=== PATIENT | male | born 1995 | race Caucasian/White ===

== ENCOUNTER 2016-09-09 07:28 | Emergency (ER) | payer MEDICAID, OTHER ==
[~2016-09-09] VITALS: Ht 167.6 cm; Wt 65.0 kg
[~2016-09-09 07:28] MED LIST: SERO100T PO
[2016-09-09 07:30] VITALS: BP 143/80; PULSE 71; RESP 17; TEMP 98.7; O2SAT 99
--- NOTE | 2016-09-09 07:52 | PD ---
HPI . head congestion, sore throat and dental pain Chief Complaint: Oral / Dental Pain or Problem Time Seen by Provider: 07:48 Travel History International Travel<30 days: No Contact w/Intl Traveler<30days: No Traveled to known affect area: No History of Present Illness HPI 20-year-old male with bipolar disorder here with complaints of head congestion, sore throat, dry cough and dental pain. Patient said he previously went to the dentist and was told he has 8 cavities and that his wisdom teeth are impacted and causing his other teeth to move around. He is also complaining of sore throat, head congestion and a dry cough. He thinks he may have the flu as he was exposed to someone who may have had it. He denies any fever or chills. He is in the exam room crying about the pain associated with his teeth. He is aware that we do not have any dental services that could fix cavities in the emergency department. 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".) Other Surgery: Yes (2000-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.) Social History Alcohol Use: Yes (OCC) Tobacco Use: Yes (/2 PPD) Substance Use: Yes (MARIJUANA OCC) Allergies-Medications (Allergen,Severity, Reaction): Coded Allergies: No Known Allergies (Verified , 09/09/16) Reported Meds & Prescriptions Reported Meds & Active Scripts Active No Active Prescriptions or Reported Medications Review of Systems General / Constitutional: No: Fever Eyes: No: Visual changes HENT: Positive: Sore Throat, Congestion, Dental Difficulties, No: Headaches Cardiovascular: No: Chest Pain or Discomfort Respiratory: Positive: Cough, No: Shortness of Breath Gastrointestinal: No: Abdominal Pain Genitourinary: No: Dysuria Musculoskeletal: No: Pain Skin: No Rash Neurologic: No: Weakness Psychiatric: No: Depression Endocrine: No: Polydipsia Hematologic/Lymphatic: No: Easy Bruising Physical Exam Narrative GENERAL: AAO x 3, no acute distress, Well-nourished, well-developed patient. SKIN: Warm and dry. No visible rashes or bruising. HEAD: Normocephalic and atraumatic. EYES: No scleral icterus. No injection or drainage. ENT: No nasal drainage noted. Mucous membranes pink. Airway patent. Maxillary sinus tenderness. Moderate posterior pharynx erythema without exudates. Some mild to moderate tonsillar edema. Oral cavity without any abscess formation or gingivitis. TM cloudy bilaterally without bulging. NECK: Supple, trachea midline. No JVD. CARDIOVASCULAR: Regular rate and rhythm without murmurs, gallops, or rubs. RESPIRATORY: Breath sounds equal bilaterally. No accessory muscle use. No rhonchi or rales. No wheezing. GASTROINTESTINAL: Abdomen soft, non-tender, nondistended. EXTREMITIES: No cyanosis or edema. BACK: Nontender without obvious deformity. No CVA tenderness. PSYCH: AAO x 3, normal affect. Data Data Last Documented VS Vital Signs Date Time Temp Pulse Resp B/P Pulse Ox O2 Delivery O2 Flow Rate FiO2 09/09/16 07:30 98.7 71 17 143/80 99 MDM Medical Decision Making Medical Screen Exam Complete: Yes Emergency Medical Condition: Yes Medical Record Reviewed: Yes Differential Diagnosis Acute sinusitis, less likely oral abscess, less likely pneumonia, less likely influenza Narrative Course 20-year-old male with bipolar disorder here with complaints of head congestion, sore throat, dry cough and dental pain. Patient said he previously went to the dentist and was told he has 8 cavities and that his wisdom teeth are impacted and causing his other teeth to move around. He is also complaining of sore throat, head congestion and a dry cough. He thinks he may have the flu as he was exposed to someone who may have had it. He denies any fever or chills. He is in the exam room crying about the pain associated with his teeth. He is aware that we do not have any dental services that could fix cavities in the emergency department. Patient seen and examined. He appears to have a sinus infection. I do not see any evidence of influenza. Recommend Augmentin and ibuprofen for pain. Discussed with patient that he will need to see a dentist Patient verbalized understanding of instructions, questions were answered, and thanked me for their care. I advised them if their condition worsens, please return to the nearest emergency room for further care. Diagnosis Primary Impression: Acute sinusitis Qualified Code: J01.00 - Acute maxillary sinusitis, recurrence not specified Additional Impression: Pain, dental Patient Instructions: General Instructions Additional Instructions: Please return to emergency department if your symptoms return or worsen. Follow up with your primary care provider. Take medications as prescribed. Please follow-up with the dentist as soon as possible. Med/Other Pt SpecificInfo: Prescription(s) given Scripts Ibuprofen 800 Mg [id number] Mg PO TID #21 TAB Prov:Debbi Martinez MD 09/09/16 Amoxicillin-Clavulanate (Augmentin)875-125 mg [id number] Mg PO BID #20 TAB not for use in CrCl <30 ml/min. Prov:Debbi Martinez MD 09/09/16 Disposition: 01 DISCHARGE HOME Condition: Stable Syeda Dunlap Sep 09, 2016 07:52
[2016-09-09] MEDS ORDERED: IBUP800T23 PO (07:53)
[2016-09-09] MEDS ORDERED: AUGM875T PO (07:53)
== END 2016-09-09 08:04 | disposition home or self-care (01) ==
LOC: NEPB 07:28
DX: J01.00 Acute maxillary sinusitis, unspecified (principal); F17.200 Nicotine dependence, unspecified, uncomplicated
CPT/HCPCS: 99282

== ENCOUNTER → 2017-04-22 | Outpatient (CLI) | payer MEDICAID ==
[~2017-04-22] MED LIST changes: +AUGM875T PO; +IBUP800T23 PO; -SERO100T PO
--- NOTE | 2017-04-23 17:53 | EKG ---
Date Performed: 04/22/2017 Time Performed: 13:08:58 PTAGE: 21 years EKG: Sinus rhythm EARLY REPOLARIZATION BORDERLINE ECG NO PREVIOUS TRACING DOCTOR: Justine Buchanan Interpretating Date/Time 04/23/2017 17:49:02
== END ==
LOC: HCAV 12:53
PROVIDERS: ATTEND Psychiatry & Neurology Child & Adolescent Psychiatry
DX: F31.62 Bipolar disorder, current episode mixed, moderate (principal); F43.12 Post-traumatic stress disorder, chronic; F41.1 Generalized anxiety disorder; R94.31 Abnormal electrocardiogram [ECG] [EKG]
CPT/HCPCS: 93005

== ENCOUNTER → 2017-06-04 | Outpatient (CLI) | payer MEDICAID ==
[~2017-06-04] MED LIST changes: +ABIL10TA8 PO; +DIPH25CA PO; +EPIP0.3I IM; +FAMO1TAB37 PO; +IBUP1TAB7 PO; -IBUP800T23 PO; +PRED20 PO
--- NOTE | 2017-06-05 15:48 | EKG ---
Date Performed: 06/04/2017 Time Performed: 16:40:31 PTAGE: 21 years EKG: Sinus rhythm VOLTAGE CRITERIA FOR LVH ABNORMAL ECG PREVIOUS TRACING : 04/22/2017 13.08 DOCTOR: Oliver Marx Interpretating Date/Time 06/05/2017 15:48:27
== END ==
LOC: HCAV 16:20
PROVIDERS: ATTEND Psychiatry & Neurology Child & Adolescent Psychiatry
DX: F31.62 Bipolar disorder, current episode mixed, moderate (principal); F43.12 Post-traumatic stress disorder, chronic; F41.1 Generalized anxiety disorder; R94.31 Abnormal electrocardiogram [ECG] [EKG]
CPT/HCPCS: 93005

== ENCOUNTER 2017-06-10 13:26 | Emergency (ER) | payer MEDICAID ==
[~2017-06-10] VITALS: Ht 167.6 cm; Wt 59.1 kg
[~2017-06-10 13:26] MED LIST changes: -ABIL10TA8 PO; -DIPH25CA PO; -EPIP0.3I IM; -FAMO1TAB37 PO; -PRED20 PO
[2017-06-10 13:28] VITALS: BP 127/76; PULSE 70; RESP 14; TEMP 97.6; O2SAT 99
[2017-06-10] MEDS ORDERED: diphenhydrAMINE HCL 25 MG CAP PO ONE (14:30)
[2017-06-10] MEDS ORDERED: predniSONE 20 MG TAB PO ONE (14:30)
[2017-06-10] MEDS ORDERED: FAMO1TAB37 PO (14:43)
[2017-06-10] MEDS ORDERED: EPIP0.3I IM (14:43)
[2017-06-10] MEDS ORDERED: DIPH25CA PO (14:43)
[2017-06-10] MEDS ORDERED: PRED20 PO (14:43)
--- NOTE | 2017-06-10 14:44 | PD ---
HPI Chief Complaint: Allergic/Adverse Reaction Time Seen by Provider: 14:20 Travel History International Travel<30 days: No Contact w/Intl Traveler<30days: No Traveled to known affect area: No History of Present Illness HPI Patient is a 21-year-old male with history of manic disorder currently taking Abilify, presents to the ER with c/o of sensation of lip tingling. Patient reports that his therapist started him on Abilify 3 weeks ago, reports that since then, he has had tingling to his lower lips. Patient reports that his therapist increased this dose of Abilify yesterday, reports that this has exacerbated his symptoms. He did call his therapist today and was told to go to the emergency room to be treated for possible allergic reaction to the Abilify. Patient denies any use of any new medications or drugs or foods, denies any new facial products. Denies sob or sensation of throat closing. Denies history of allergic reaction in the past. 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".) Other Surgery: Yes (2000-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.) Social History Alcohol Use: Yes (OCC) Tobacco Use: Yes (1/2 PPD) Substance Use: Yes (MARIJUANA OCC) Allergies-Medications (Allergen,Severity, Reaction): Coded Allergies: aripiprazole (Verified Allergy, Intermediate, Itching, 06/10/17) Reported Meds & Prescriptions Reported Meds & Active Scripts Active Epipen 2-Riky Inj (Epinephrine) 0.3 Mg/0.3 Ml Pfpen 0.3 Mg IM ONCE PRN Pepcid (Famotidine) 20 Mg Tab 20 Mg PO BID 5 Days Diphenhydramine (Diphenhydramine HCl) 25 Mg Cap 25 Mg PO Q6H PRN 5 Days Prednisone 20 Mg Tab 20 Mg PO BID 5 Days Reported Abilify (Aripiprazole) 10 Mg Tab 10 Mg PO DAILY Review of Systems General / Constitutional: No: Fever Eyes: No: Visual changes HENT: No: Headaches, Neck Pain Cardiovascular: No: Chest Pain or Discomfort Respiratory: No: Cough, Shortness of Breath, Wheezing, Stridor Gastrointestinal: No: Abdominal Pain Genitourinary: No: Dysuria Musculoskeletal: No: Pain Skin: No Rash Neurologic: No: Weakness Psychiatric: No: Depression Endocrine: No: Polydipsia Hematologic/Lymphatic: No: Easy Bruising Physical Exam Narrative GENERAL: NAD SKIN: Focused skin assessment warm/dry. HEAD: Atraumatic. Normocephalic. EYES: Pupils equal and round. No scleral icterus. No injection or drainage. ENT: No nasal bleeding or discharge. Mucous membranes pink and moist. Uvula midline and patent with no swelling, posterior pharynx open and patent with no swelling NECK: Trachea midline. No JVD. CARDIOVASCULAR: Regular rate and rhythm. No murmur appreciated. RESPIRATORY: No accessory muscle use. Clear to auscultation. Breath sounds equal bilaterally. GASTROINTESTINAL: Abdomen soft, non-tender, nondistended. Hepatic and splenic margins not palpable. MUSCULOSKELETAL: No obvious deformities. No clubbing. No cyanosis. No edema. NEUROLOGICAL: Awake and alert. No obvious cranial nerve deficits. Motor grossly within normal limits. Normal speech. PSYCHIATRIC: Anxious mood and affect; insight and judgment normal. Data Data Last Documented VS Vital Signs Date Time Temp Pulse Resp B/P (MAP) Pulse Ox O2 Delivery O2 Flow Rate FiO2 06/10/17 14:30 18 99 Room Air 06/10/17 13:28 97.6 70 127/76 (93) Orders Orders Basic Metabolic Panel (Bmp) (06/10/17 14:30) Prednisone (Deltasone) (06/10/17 14:30) Diphenhydramine (Benadryl) (06/10/17 14:30) Labs Laboratory Tests Test 06/10/17 14:40 Blood Urea Nitrogen 11 MG/DL Creatinine 1.04 MG/DL Random Glucose 84 MG/DL Calcium Level 8.7 MG/DL Sodium Level 140 MEQ/L Potassium Level 4.2 MEQ/L Chloride Level 108 MEQ/L Carbon Dioxide Level 30.4 MEQ/L Anion Gap 2 MEQ/L Estimat Glomerular Filtration Rate 89 ML/MIN MDM Medical Decision Making Medical Screen Exam Complete: Yes Emergency Medical Condition: Yes Medical Record Reviewed: Yes Interpretation(s) Vital Signs Date Time Temp Pulse Resp B/P (MAP) Pulse Ox O2 Delivery O2 Flow Rate FiO2 06/10/17 13:28 97.6 70 14 127/76 (93) 99 Differential Diagnosis Allergic reaction, anxiety reaction Narrative Course 21-year-old male who presents to emergency room possible allergic reaction to Abilify which he recently started. Reports that he has noticed tingling sensations to his lip since the beginning of this medication, he did not report this reaction to his therapist to increase his dose of Abilify yesterday. Patient reports increase sensations to his lips since this medication adjustment. Patient is concerned for possible allergic reaction. He has not taken any Benadryl today, denies any shortness of breath, denies any airway involvement. Plan to stop patient on his Abilify, will give him a dose of prednisone as well as Benadryl. We'll check BMP to evaluate for possible electrolyte abnormalities. Patient will call his therapist today as he will need his medications changed. Patient reevaluated, patient feeling much better at this time. Patient with most likely adverse affect to abilify. Signs and symptoms of when to return to the ER was reviewed with patient in detail. Plan to discharge patient home with script for steroids as well as benadryl. He will follow up with his therapist and will return to ER as needed. Diagnosis Primary Impression: Allergic reaction caused by a drug Qualified Codes: T78.40XA - Allergy, unspecified, initial encounter Patient Instructions: General Instructions Additional Instructions: Please stop taking ability Please take all medications as prescribed If you administer epi pen to yourself, go to the nearest ER for close monitoring Please call your therapist as soon as possible for medication adjustment Return to ER if symptoms worsen or progress Return to ER as needed Med/Other Pt SpecificInfo: Prescription(s) given Scripts Epinephrine Inj (Epipen 2-Riky Inj) 0.3 Mg/0.3 Ml Pfpen 0.3 MG IM ONCE Y for ALLERGIC REACTION, #1 PACK 0 Refills Prov: Jennifer Mckeon DO 06/10/17 Famotidine (Pepcid) 20 Mg Tab 20 MG PO BID for 5 Days, #10 TAB 0 Refills Prov: Jennifer Mckeon DO 06/10/17 Diphenhydramine (Diphenhydramine) 25 Mg Cap 25 MG PO Q6H Y for ALLERGIES for 5 Days, #20 CAP 0 Refills Prov: Jennifer Mckeon DO 06/10/17 Prednisone (Prednisone) 20 Mg Tab 20 MG PO BID for 5 Days, #10 TAB 0 Refills Prov: Jennifer Mckeon DO 06/10/17 Disposition: 01 DISCHARGE HOME Condition: Stable Jennifer Mckeon DO Jun 10, 2017 14:44
[2017-06-10] MEDS ORDERED: ABIL10TA8 PO (15:03)
[2017-06-10 15:16] LABS: BICARBONATE 30.4 MEQ/L (21.0-32.0); CALCIUM 8.7 MG/DL (8.5-10.1); CREATININE 1.04 MG/DL (0.60-1.30)
[2017-06-10 16:05] VITALS: BP 102/77; TEMP 97.8
== END 2017-06-10 16:05 | disposition home or self-care (01) ==
LOC: NEPD 13:26
DX: T78.40XA Allergy, unspecified, initial encounter (principal); F31.9 Bipolar disorder, unspecified; F17.200 Nicotine dependence, unspecified, uncomplicated
CPT/HCPCS: 80048; 99284; J7512

== ENCOUNTER 2017-07-30 19:44 | Emergency (ER) | payer SELFPAY ==
[~2017-07-30] VITALS: Ht 167.6 cm; Wt 62.4 kg
[2017-07-30] VITALS (8 sets, daily range): BP systolic 125–140; BP diastolic 69–71; PULSE 78–99; RESP 16–20; TEMP 99.9–102.8; O2SAT 97–99
[~2017-07-30 19:44] MED LIST changes: +ABIL10TA8 PO; -AUGM875T PO; +DIPH25CA PO; +EPIP0.3I IM; +FAMO1TAB37 PO; -IBUP1TAB7 PO; +PRED20 PO
[2017-07-30] MEDS ORDERED: SODIUM CHLOR 0.9% 1000 ML INJ 1,000 ML IV ONE ×2 (20:15)
--- NOTE | 2017-07-30 20:16 | PD ---
HPI Chief Complaint: Cold / Flu Symptoms Time Seen by Provider: 20:03 Travel History International Travel<30 days: No Contact w/Intl Traveler<30days: No Traveled to known affect area: No History of Present Illness HPI 21-year-old male presents to the emergency department by private transportation for complaint of one-week throat pain fever nonproductive cough and sinus drainage. Patient states that he has been exposed to a friend with strep throat who was taking amoxicillin so the patient started taking his friend's amoxicillin but does not feel any better. Patient was also exposed to a friend with influenza who had leftover Tamiflu so he took Tamiflu and again did not feel any better. Patient's been taking [id number] medication for fever and body aches including acetaminophen every 6 hours and Advil/ibuprofen every 6 hours alternating antipyretics. Patient has been nauseated without vomiting. No abdominal pain and no diarrhea. Patient states the pain is severe such that he tries to limit the amount that he swallows but has not had issues managing his own saliva. Patient has history of single functioning kidney, ADHD , and bipolar disorder but denies taking medications for these conditions at this time. The patient rates his pain 10/10 in intensity. 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 eye".) Other Surgery: Yes (2000-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.) Social History Alcohol Use: Yes (OCC) Tobacco Use: Yes (1 PPD) Substance Use: Yes (MARIJUANA OCC) Allergies-Medications (Allergen,Severity, Reaction): Coded Allergies: aripiprazole (Verified Allergy, Intermediate, Itching, 07/30/17) Reported Meds & Prescriptions Reported Meds & Active Scripts Active No Active Prescriptions or Reported Medications Review of Systems Except as stated in HPI: all other systems reviewed are Neg General / Constitutional: Positive: Fever, Chills HENT: Positive: Headaches, Sore Throat, Congestion, No: Neck Stiffness, Neck Pain Cardiovascular: No: Chest Pain or Discomfort Respiratory: Positive: Cough, No: Shortness of Breath Gastrointestinal: Positive: Nausea, No: Vomiting, Diarrhea, Abdominal Pain Genitourinary: No: Dysuria, Decreased Urinary Output Musculoskeletal: Positive: Myalgias, Arthralgias Skin: No Rash Neurologic: Positive: Weakness Psychiatric: No: Anxiety Hematologic/Lymphatic: No: Lymph Node Enlargement Physical Exam Narrative GENERAL: Well-developed well-nourished male in no acute distress or respiratory distress; triage vital signs febrile, T: 102.6F SKIN: Warm and dry. HEAD: Normocephalic. EYES: No scleral icterus. No injection or drainage. ENT mucous membranes moist airway is patent tonsillar edema erythema with exudative change uvula midline; tympanic membranes no redness dullness or loss of landmarks; maxillary sinuses tender to percussion NECK: Supple, trachea midline. No JVD or lymphadenopathy. No meningismus no nuchal rigidity. CARDIOVASCULAR: Regular rate and rhythm without murmurs, gallops, or rubs. RESPIRATORY: Breath sounds equal bilaterally. No accessory muscle use. GASTROINTESTINAL: Abdomen soft, non-tender, nondistended. MUSCULOSKELETAL: No cyanosis, or edema. BACK: Nontender without obvious deformity. No CVA tenderness. Data Data Last Documented VS Vital Signs Date Time Temp Pulse Resp B/P (MAP) Pulse Ox O2 Delivery O2 Flow Rate FiO2 07/30/17 22:29 101.5 82 18 97 Room Air Orders Orders Basic Metabolic Panel (Bmp) (07/30/17 20:03) Complete Blood Count With Diff (07/30/17 20:03) Monoscreen (07/30/17 20:03) Blood Culture (07/30/17 20:03) Group A Rapid Strep Screen (07/30/17 20:03) Iv Access Insert/Monitor (07/30/17 20:03) Influenzae A/B Antigen (07/30/17 20:03) Sodium Chlor 0.9% 1000 Ml Inj (Ns 1000 M (07/30/17 20:15) Urinalysis - C+S If Indicated (07/30/17 20:03) Lactic Acid (07/30/17 20:03) Magnesium (Mg) (07/30/17 20:03) Sodium Chlor 0.9% 1000 Ml Inj (Ns 1000 M (07/30/17 20:15) Strep Culture (Group A) (07/30/17 20:18) Chest, Single Ap (07/30/17 ) Acetaminophen (Tylenol) (07/30/17 21:30) Ibuprofen (Motrin) (07/30/17 21:30) Ceftriaxone Inj (Rocephin Inj) (07/30/17 22:15) Sodium Chlor 0.9% 1000 Ml Inj (Ns 1000 M (07/30/17 22:15) Labs Laboratory Tests Test 07/30/17 20:15 07/30/17 20:20 Urine Color YELLOW Urine Turbidity CLEAR Urine pH 5.5 Urine Specific [place] 1.016 Urine Protein NEG mg/dL Urine Glucose (UA) NEG mg/dL Urine Ketones NEG mg/dL Urine Occult Blood TRACE Urine Nitrite NEG Urine Bilirubin NEG Urine Leukocyte Esterase NEG Urine RBC 0-3 /hpf Urine Squamous Epithelial Cells 0-5 /hpf Microscopic Urinalysis Comment CULT NOT INDICATED White Blood Count 9.9 TH/MM3 Red Blood Count 4.77 MIL/MM3 Hemoglobin 14.7 GM/DL Hematocrit 43.5 % Mean Corpuscular Volume 91.3 FL Mean Corpuscular Hemoglobin 30.9 PG Mean Corpuscular Hemoglobin Concent 33.8 % Red Cell Distribution Width 11.5 % Platelet Count 128 TH/MM3 Mean Platelet Volume 10.2 FL Neutrophils (%) (Auto) 64.7 % Lymphocytes (%) (Auto) 24.3 % Monocytes (%) (Auto) 8.9 % Eosinophils (%) (Auto) 1.1 % Basophils (%) (Auto) 1.0 % Neutrophils # (Auto) 6.4 TH/MM3 Lymphocytes # (Auto) 2.4 TH/MM3 Monocytes # (Auto) 0.9 TH/MM3 Eosinophils # (Auto) 0.1 TH/MM3 Basophils # (Auto) 0.1 TH/MM3 CBC Comment DIFF FINAL Differential Comment Blood Urea Nitrogen 14 MG/DL Creatinine 1.20 MG/DL Random Glucose 84 MG/DL Calcium Level 9.0 MG/DL Magnesium Level 1.7 MG/DL Sodium Level 135 MEQ/L Potassium Level 3.6 MEQ/L Chloride Level 102 MEQ/L Carbon Dioxide Level 27.0 MEQ/L Anion Gap 6 MEQ/L Estimat Glomerular Filtration Rate 76 ML/MIN Lactic Acid Level 1.1 mmol/L Monoscreen NEG MDM Medical Decision Making Medical Screen Exam Complete: Yes Emergency Medical Condition: Yes Medical Record Reviewed: Yes Interpretation(s) inf\\luenza a/b ag: negative rsa: negative CBC & BMP Diagram 07/30/17 20:20 Calcium Level 9.0, Magnesium Level 1.7 Vital Signs Date Time Temp Pulse Resp B/P (MAP) Pulse Ox O2 Delivery O2 Flow Rate FiO2 07/30/17 22:29 101.5 82 18 97 Room Air 07/30/17 21:24 102.8 99 20 140/71 (94) 98 Room Air 07/30/17 21:05 102.0 07/30/17 20:36 Room Air 07/30/17 20:33 78 18 99 Room Air 07/30/17 20:05 102.6 07/30/17 20:04 102.6 88 99 Room Air 07/30/17 19:50 102.5 91 16 125/69 (87) 98 Last Impressions Chest X-Ray 07/30/17 0000 Signed Impressions: Service Date/Time: Sunday, July 30, 2017 21:17 - CONCLUSION: Normal examination for a patient of this age. Jd Norris MD monospot: negative Differential Diagnosis Tonsillitis, no exam findings for peritonsillar abscess unlikely mononucleosis, influenza, pneumonia, sinusitis, viral syndrome, dehydration; no exam findings for peritonsillar abscess and unlikely retropharyngeal abscess Narrative Course IV access obtained specimens collected and sent for resulting sweatshirt and sweatpants removed for evaporative cooling IV fluids administered Patient administered weight-based acetaminophen and ibuprofen Patient is stable for outpatient management and follow-up with primary care provider Patient is encouraged to increase fluid hydration continues to use antipyretics as needed to follow-up with his primary care provider to complete course of antibiotic as prescribed Diagnosis Primary Impression: Acute tonsillitis Qualified Codes: J03.90 - Acute tonsillitis, unspecified Referrals: [facility] Primary Care Physician call for appointment Patient Instructions: General Instructions Additional Instructions: Increase fluid hydration Complete course of antibiotic as prescribed Take acetaminophen/Tylenol every 4 hours for fever 100.4F or greater May take ibuprofen/Advil/Motrin every 8 hours as needed for fever 100.4F or greater Follow-up with your primary care provider Return to the emergency department for any concerns or change in condition For symptomatic relief use warm salt water gargles lozenges and/or Chloraseptic spray Med/Other Pt SpecificInfo: Prescription(s) given Scripts Azithromycin (Zithromax Z-Riky) 250 Mg Dspk 250 MG PO DIRECTED for Infection, #1 DSPK 0 Refills 500 MG (2 tabs) day 1, then 1 tab days 2-5. Prov: Yuko Osborne MD 07/30/17 Disposition: 01 DISCHARGE HOME Condition: Stable Yuko Osborne MD Jul 30, 2017 20:16
[2017-07-30 20:38] LABS: BILIRUBIN, URINE NEG (NEG); BLOOD, URINE TRACE (NEG); GLUCOSE,URINE NEG (NEG); KETONE, URINE NEG (NEG); NITRITE,URINE NEG (NEG); PH, URINE 5.5 (5.0-8.5); URINE LEUKOCYTE ESTERASE NEG (NEG)
[2017-07-30 20:44] LABS: URINE COLOR YELLOW (YELLW/STRAW)
[2017-07-30 20:45] LABS: RBC, URINE 0-3 /hpf (0-3); SQUAMOUS EPITHELIAL CELL URINE 0-5 /hpf (0-5)
[2017-07-30 20:47] LABS: MAGNESIUM 1.7 MG/DL (1.5-2.5)
[2017-07-30 20:50] LABS: CREATININE 1.2 MG/DL (0.60-1.30)
[2017-07-30 21:12] LABS: AUTOMATED NEUTROPHIL # 6.4 TH/MM3 (1.8-7.7); BASOPHIL # 0.1 TH/MM3 (0-0.2); EOSINOPHIL # 0.1 TH/MM3 (0-0.4); EOSINOPHIL % 1.1 % (0.0-4.0); HEMATOCRIT 43.5 % (39.0-51.0); HEMOGLOBIN 14.7 GM/DL (13.0-17.0); LYMPH % 24.3 % (9.0-44.0); LYMPHOCYTE # 2.4 TH/MM3 (1.0-4.8); MEAN CELL VOLUME 91.3 FL (80.0-100.0); MEAN CORPUSCULAR HEMOGLOBIN 30.9 PG (27.0-34.0); MEAN CORPUSCULAR HGB CONC 33.8 % (32.0-36.0); MEAN PLATELET VOLUME 10.2 FL (7.0-11.0); MONO % 8.9 % (0.0-8.0); MONOCYTE # 0.9 TH/MM3 (0-0.9); NEUT % 64.7 % (16.0-70.0); PLATELET COUNT 128 TH/MM3 (150-450); RED BLOOD COUNT 4.77 MIL/MM3 (4.50-5.90); RED CELL DISTRIBUTION WIDTH 11.5 % (11.6-17.2); WHITE BLOOD COUNT 9.9 TH/MM3 (4.0-11.0)
[2017-07-30] MEDS ORDERED: IBUPROFEN 600 MG TAB PO ONE (21:30)
[2017-07-30] MEDS ORDERED: ACETAMINOPHEN 325 MG TAB PO ONE (21:30)
--- NOTE | 2017-07-30 21:54 | RADRPT ---
EXAM DATE/TIME: 07/30/2017 21:17 [place] COMPARISON: No previous studies available for comparison. INDICATIONS : Flu like symptoms for 1 week. MEDICAL HISTORY : None. SURGICAL HISTORY : None. ENCOUNTER: Initial ACUITY: 1 week PAIN SCORE: 2/10 LOCATION: Bilateral chest FINDINGS: A single view of the chest demonstrates the lungs to be symmetrically aerated without evidence of mas s, infiltrate or effusion. The cardiomediastinal contours are unremarkable. Osseous structures are intact. CONCLUSION: Normal examination for a patient of this age. Jd Norris MD on July 30, 2017 at 21:52 Board Certified Radiologist. This report was verified electronically.
[2017-07-30] MEDS ORDERED: cefTRIAXone INJ 1,000 MG in SODIUM CHLORIDE 0.9% INJ 100 ML IV ONE (22:15)
[2017-07-30] MEDS ORDERED: SODIUM CHLOR 0.9% 1000 ML INJ 1,000 ML IV SCH (22:15)
[2017-07-30 22:39] LABS: MONOSCREEN NEG (NEG)
[2017-07-30] MEDS ORDERED: ZITHTAB PO (22:59)
== END 2017-07-30 23:15 | disposition home or self-care (01) ==
LOC: PHED 19:44
DX: J03.90 Acute tonsillitis, unspecified (principal); F31.9 Bipolar disorder, unspecified; F17.210 Nicotine dependence, cigarettes, uncomplicated; Z88.8 Allergy status to other drugs, medicaments and biological substances
CPT/HCPCS: 71045; 80048; 81001; 83605; 83735; 85025; 86308; 87040; 87081; 87804; 87880; 96361; 96365; 99284; J0696; J7030